=== PATIENT | male | born 1960 | race Caucasian/White ===

== ENCOUNTER 2017-10-05 06:01 | Inpatient (IN) | payer BC ==
[2017-09-29 16:46] VITALS: BMI 35.9
[2017-10-05] MEDS ORDERED: oxyCODONE HCL 10 MG SUSTAINED ACTING TABLET PO ONE (07:04)
[2017-10-05] MEDS ORDERED: TRANEXAMIC ACID 1000 MG/10 ML VIAL IVPUSH ONE (07:04)
[2017-10-05] MEDS ORDERED: ROPIVICAINE 0.2%/MORPH PF/KETOROLAC - 51ML DISP.SYRINGE IA ONE (07:04)
[2017-10-05] MEDS ORDERED: CELECOXIB 200 MG CAPSULE PO ONE (07:04)
[2017-10-05] MEDS ORDERED: BUPIVACAINE HCL/PF (5 MG/ML) 30 ML VIAL IJ ONE (07:25)
[2017-10-05] MEDS ORDERED: EPINEPHrine/PF 1 MG/1 ML (1:1,000) AMPULE ONE (07:25)
[2017-10-05] MEDS ORDERED: MIDAZOLAM HCL 2 MG/2 ML SINGLE DOSE VIAL ONE (07:25)
[2017-10-05] MEDS ORDERED: DEXAMETHASONE SOD PHOSPHATE/PF 10 MG/ML SDV ONE (07:25)
[2017-10-05] MEDS ORDERED: VANCOMYCIN 1,000 MG VIAL (RESTRICTED TO ID ONLY) ONE ×2 (07:29→09:12)
--- NOTE | 2017-10-05 07:35 | HP ---
History & Physical Update - History History: No Change - Physical Physical: No Change - Assessment Assessment: No Change - Plan Plan: No Change
[2017-10-05] MEDS ORDERED: ePHEDrine SULFATE 50 MG/1 ML AMPULE ONE ×2 (08:20→09:26)
[2017-10-05] MEDS ORDERED: FLUMAZENIL 0.5 MG/5 ML VIAL ONE (08:27)
[2017-10-05] MEDS ORDERED: PROPOFOL 20 ML ONE (08:30)
[2017-10-05] MEDS ORDERED: CEFAZOLIN 2 GM in DEXTROSE 5%-WATER - 50 ML IVPB ONE (08:30)
[2017-10-05] MEDS ORDERED: VANCOMYCIN 1,500 MG in DEXTROSE 5%-WATER - 250 ML IVPB ONE (08:30)
[2017-10-05] MEDS ORDERED: SUCCINYLCHOLINE CHLORIDE 200 MG/10 ML VIAL ONE (08:32)
[2017-10-05] MEDS ORDERED: ROCURONIUM BROMIDE 50 MG/5 ML VIAL ONE (08:41)
[2017-10-05] MEDS ORDERED: fentaNYL CITRATE 250 MCG/5 ML VIAL ONE (08:44)
[2017-10-05] MEDS ORDERED: DEXAMETHASONE SOD PHOSPHATE 4 MG/1 ML VIAL ONE (09:12)
[2017-10-05] MEDS ORDERED: ONDANSETRON 4 MG/2 ML VIAL ONE ×2 (09:12→13:40)
[2017-10-05] MEDS ORDERED: ceFAZolin SODIUM 1 GM VIAL ONE ×2 (09:12→10:48)
[2017-10-05] MEDS ORDERED: DESFLURANE GAS 240 ML BOTTLE IH ONE (09:12)
[2017-10-05] MEDS ORDERED: PHENYLEPHRINE HCL 10 MG/1 ML SINGLE DOSE VIAL ONE (09:12)
[2017-10-05] MEDS ORDERED: GLYCOPYRROLATE 0.2 MG/1 ML VIAL ONE (11:55)
[2017-10-05] MEDS ORDERED: NEOSTIGMINE METHYLSULFATE 0.5 MG/ML - 10 ML MDV ONE (11:55)
[2017-10-05] MEDS ORDERED: BENZOIN/ALOE VERA/STORAX/TOLU 58 ML BOTTLE ONE (12:05)
[2017-10-05] MEDS ORDERED: MAG HYDROX/AL HYDROX/SIMETH 30 ML UNIT-DOSE CUP PO PRN (12:41)
[2017-10-05] MEDS ORDERED: MAGNESIUM HYDROX 2400MG/30ML ORAL SUSPENSION 30 ML CUP PO PRN (12:41)
[2017-10-05] MEDS ORDERED: ONDANSETRON 4 MG/2 ML VIAL IVPUSH PRN ×2 (12:41→13:07)
[2017-10-05] MEDS ORDERED: LACTATED RINGERS SOLUTION 1,000 ML IV SCH ×2 (12:45→13:15)
--- NOTE | 2017-10-05 12:48 | OP ---
Operative Note - Note: Operative Date: 10/05/17 Pre-Operative Diagnosis: Left hip DJD Operation: Left total hip replacement Implants: Christopher. Cup - Trident 48mm. Poly - 32mm, neutral. Femur - Accolade II, #5, High Offset, 127 degrees NSA. Head - 32mm, Biolox/Ceramic, Standard Post-Operative Diagnosis: Same as Pre-op Surgeon: Carlitos Vergara Pipe Inspector: Faby Mccracken Anesthesiologist/PROJECT INTERN: Oniel Charles Anesthesia: General, Spinal Specimens Removed: Left femoral head Estimated Blood Loss (mls): 200 Fluid Volume Replaced (mls): 1,800 Operative Report Dictated: Yes
[2017-10-05] MEDS ORDERED: oxyCODONE HCL 5 MG TABLET PO PRN (13:07)
[2017-10-05] MEDS ORDERED: PROMETHAZINE HCL 25 MG/1 ML VIAL IVPUSH PRN (13:07)
--- NOTE | 2017-10-05 13:15 | PN ---
Progress Note (short form) - Note Progress Note: 57M s/p L LUTHER via Direct Superior approach POD #0. -Pain control: No NSAID's. -DVT PPx: Mechanical (VIKTORIYA's & SCD's) and Chemical (ASA EC 81mg PO BID x 6 weeks) . -Incentive spirometry. -PT/OT/Rehab, OOB. -WBAT LLE. -No hip precautions necessary. -Wound care: Maintain Aquacel dressing until first post-op office visit. -Home nursing services. -Home PT: walking only; No ROM or L hip strengthening. -f/u [facility] office 10/13/2016; call for appointment: [phone]. Carlitos Vergara MD (Orthopaedic Surgery)
[2017-10-05] MEDS ORDERED: ACETAMINOPHEN 325 MG TABLET (FP) ONE (13:24)
[2017-10-05] MEDS: ACETAMINOPHEN 325 MG TABLET (FP) PO SCH ×3 (13:29→19:47)
--- NOTE | 2017-10-05 13:45 | SURG ---
Surgery Truck Bench Mechanic Note Truck Bench Mechanic: Faby Mccracken PA-C Date of Service: 10/05/17 Diagnosis: Left hip DJD Procedure: Left total hip replacement I was present for the entirety of the operative procedure. For further detail, please refer to operative report. Visit type - Case Type Case Type: Scheduled Admission - New patient This patient is new to me today: Yes Date on this admission: 10/05/17
[2017-10-05] MEDS: oxyCODONE HCL 5 MG TABLET PO PRN ×3 (15:43→23:56)
--- NOTE | 2017-10-05 15:43 | CONSULT ---
Consultation: REQUESTING PROVIDER: CONSULT REQUEST: We have been asked to medically evaluate this patient for ( specify). HISTORY OF PRESENT ILLNESS: REVIEW OF SYSTEMS: CONSTITUTIONAL: Absent: fever, chills, diaphoresis, generalized weakness, malaise, loss of appetite, weight change HEENT: Absent: rhinorrhea, nasal congestion, throat pain, throat swelling, difficulty swallowing, mouth swelling, ear pain, eye pain, visual changes CARDIOVASCULAR: Absent: chest pain, syncope, palpitations, irregular heart rate, lightheadedness , peripheral edema RESPIRATORY: Absent: cough, shortness of breath, dyspnea with exertion, orthopnea, wheezing, stridor, hemoptysis GASTROINTESTINAL: Absent: abdominal pain, abdominal distension, nausea, vomiting, diarrhea, constipation, melena, hematochezia GENITOURINARY: Absent: dysuria, frequency, urgency, hesitancy, hematuria, flank pain, genital pain MUSCULOSKELETAL: Absent: myalgia, arthralgia, joint swelling, back pain, neck pain SKIN: Absent: rash, itching, pallor HEMATOLOGIC/IMMUNOLOGIC: Absent: easy bleeding, easy bruising, lymphadenopathy, frequent infections ENDOCRINE: Absent: unexplained weight gain, unexplained weight loss, heat intolerance, cold intolerance NEUROLOGIC: Absent: headache, focal weakness or paresthesias, dizziness, unsteady gait, seizure, mental status changes, bladder or bowel incontinence PSYCHIATRIC: Absent: anxiety, depression, suicidal or homicidal ideation, hallucinations. PHYSICAL EXAMINATION Vital Signs - 24 hr 10/05/17 10/05/17 10/05/17 06:28 13:01 13:05 Temperature 98.5 F 97.9 F Pulse Rate 83 97 H 95 H Respiratory 17 16 10 L Rate Blood Pressure 159/107 134/83 132/77 O2 Sat by Pulse 98 99 Oximetry (%) 10/05/17 10/05/17 10/05/17 13:10 13:15 13:30 Temperature Pulse Rate 87 94 H 88 Respiratory 11 L 17 17 Rate Blood Pressure 140/86 140/86 143/86 O2 Sat by Pulse 99 99 98 Oximetry (%) 10/05/17 10/05/17 13:45 13:55 Temperature 97.5 F L Pulse Rate 90 88 Respiratory 18 18 Rate Blood Pressure 158/86 144/90 O2 Sat by Pulse 99 99 Oximetry (%) GENERAL: Awake, alert, and fully oriented, in no acute distress. HEAD: Normal with no signs of trauma. EYES: Pupils equal, round and reactive to light, extraocular movements intact, sclera anicteric, conjunctiva clear. No lid lag. EARS, NOSE, THROAT: Ears normal, nares patent, oropharynx clear without exudates. Moist mucous membranes. NECK: Normal range of motion, supple without lymphadenopathy, JVD, or masses. LUNGS: Breath sounds equal, clear to auscultation bilaterally. No wheezes, and no crackles. No accessory muscle use. HEART: Regular rate and rhythm, normal S1 and S2 without murmur, rub or gallop. ABDOMEN: Soft, nontender, not distended, normoactive bowel sounds, no guarding, no rebound, no masses. No hepatomegaly or splenomegaly. MUSCULOSKELETAL: Normal range of motion at all joints. No bony deformities or tenderness. No CVA tenderness. UPPER EXTREMITIES: 2+ pulses, warm, well-perfused. No cyanosis. No clubbing. Cap refill <2 seconds. No peripheral edema. LOWER EXTREMITIES: 2+ pulses, warm, well-perfused. No calf tenderness. No peripheral edema. NEUROLOGICAL: Cranial nerves II-XII intact. Normal speech. Normal gait. PSYCHIATRIC: Cooperative. Good eye contact. Appropriate mood and affect. SKIN: Warm, dry, normal turgor, no rashes or lesions noted. Active Medications Generic Name Dose Route Start Last Admin Trade Name Freq PRN Reason Stop Dose Admin Acetaminophen 650 mg 10/05/17 14:00 10/05/17 14:31 Tylenol - PO 10/08/17 13:59 Not Given Q6H PEDRO PABLO Al Hydroxide/Mg Hydroxide 30 ml 10/05/17 12:41 Mylanta Oral Suspension - PO Q4H PRN DYSPEPSIA Aspirin 81 mg 10/05/17 22:00 Asa - PO BID PEDRO PABLO Fentanyl 50 mcg 10/05/17 13:07 Sublimaze Injection - IVPUSH [id number] PRN PAIN-PACU ORDER X 4 DOSES ONLY Gabapentin 300 mg 10/05/17 22:00 Neurontin - PO BID PEDRO PABLO Cefazolin Sodium/Dextrose 2 gm in 50 mls @ 100 mls/hr 10/05/17 18:00 Ancef 2 Gm Premixed Ivpb - IVPB 10/06/17 02:29 Q8H-IV PEDRO PABLO Lactated Ringer's 1,000 mls @ 125 mls/hr 10/05/17 12:45 10/05/17 14:30 Lactated Ringers Solution IV 10/06/17 06:00 Not Given ASDIR PEDRO PABLO Vancomycin HCl 1,000 mg in 250 mls @ 250 mls/hr 10/05/17 21:00 Vancomycin (Pre-Docked) IVPB 10/05/17 21:59 ONCE ONE Protocol Lactated Ringer's 1,000 mls @ 75 mls/hr 10/05/17 13:15 10/05/17 14:31 Lactated Ringers Solution IV Not Given ASDIR PEDRO PABLO Magnesium Hydroxide 30 ml 10/05/17 12:41 Milk Of Magnesia - PO PRN PRN CONSTIPATION Ondansetron HCl 4 mg 10/05/17 12:41 Zofran Injection IVPUSH Q6H PRN NAUSEA Ondansetron HCl 4 mg 10/05/17 13:07 Zofran Injection IVPUSH Q6H PRN NAUSEA AND/OR VOMITING Oxycodone HCl 5 mg 10/05/17 13:07 Roxicodone - PO Q3H PRN PAIN LEVEL 1-5 Oxycodone HCl 10 mg 10/05/17 13:07 Roxicodone - PO Q3H PRN PAIN LEVEL 6-10 Oxycodone HCl 10 mg 10/05/17 22:00 Oxycontin - PO 10/08/17 13:07 BID [facility] Pantoprazole Sodium 40 mg 10/06/17 10:00 Protonix - PO DAILY [facility] Promethazine HCl 12.5 mg 10/05/17 13:07 Phenergan Injection - IVPUSH Q6H PRN NAUSEA-FOR RESCUE AFTER 15 MIN Senna/Docusate Sodium 2 tablet 10/05/17 22:00 Pericolace - PO BID [facility] ASSESSMENT/PLAN: Dispo: We will continue to follow the patient. Thank you for this consultative opportunity.
[2017-10-05] MEDS: CEFAZOLIN 2 GM/D5W 2 GM/50 ML ML IVPB SCH (17:31)
[2017-10-05] MEDS ORDERED: VANCOMYCIN 1 GRAM (PRE-DOCKED) 1,000 MG/250 ML BAG IVPB ONE (21:00)
[2017-10-05] MEDS: oxyCODONE HCL 10 MG SUSTAINED ACTING TABLET PO SCH (21:24)
[2017-10-05] MEDS: SENNOSIDES/DOCUSATE COMBO (SENNA PLUS) TABLET (UD) PO SCH (21:24)
[2017-10-05] MEDS: ASPIRIN 81 MG CHEWABLE TABLETS PO SCH (21:24)
[2017-10-05] MEDS: GABAPENTIN 300 MG CAPSULE (FP) PO SCH (21:25)
[2017-10-06] MEDS: ACETAMINOPHEN 325 MG TABLET (FP) PO SCH ×2 (01:28→09:33)
[2017-10-06] MEDS: CEFAZOLIN 2 GM/D5W 2 GM/50 ML ML IVPB SCH (01:28)
[2017-10-06] MEDS: oxyCODONE HCL 5 MG TABLET PO PRN (05:31)
[2017-10-06 05:59] VITALS: BP 148/80; PULSE 77; TEMP 98.3
--- NOTE | 2017-10-06 07:40 | DS ---
Physical Exam: SUBJECTIVE: Patient seen and examined. Sitting in chair at bedside. States he has minimal incisional tenderness. Adequate pain control via prn PO meds. He has been oob and ambulating with walker. Voiding spontaneously. Denies n/v/f/c, CP, SOB, numbness or weakness. OBJECTIVE: Last Vital Signs Temp Pulse Resp BP Pulse Ox 98.3 F 77 18 148/80 98 10/06/17 05:57 10/06/17 05:57 10/06/17 05:57 10/06/17 05:57 10/06/17 05:57 PE GENERAL: awake, alert, and fully oriented, nad HEAD: nc. at. NECK: Trachea midline, full range of motion, supple. LUNGS: cta bilat anteriorly. HEART: rrr ABD: Soft. nt. nd LE: RLE unremarkable. LLE: dressing c/d/i. No hematoma. 2+ pulses, warm, well- perfused, no edema. NEURO: CN II-XII grossly intact. Normal speech, gait not observed. PSYCH: Normal mood, normal affect. HOSPITAL COURSE: Date of Admission:10/05/17 Date of Discharge: 10/06/17 The patient was admitted to the Med-Surg Unit after an elective repair of their left hip DJD. Now, s/p left total hip replacement. An intra-op xray was obtained and confirmed hardware placement in good position, no fractures or dislocations. Since surgery, patient ambulated the hallways with walker assistance. Narcotic and non-narcotic pain management control was achieved with an oral and IV approach. Michelle-operative IV ABX were administered. DVT prophylaxis was achieved with SCDs and early ambulation. The patient ambulated with Physical Therapy and no services were recommended upon discharge. [place] [employer] OPERATOR checked with prior to escribe of narcotic pain management. The discharge instructions and an oral pain management plan were reviewed with the patient. All questions answered. Above plan discussed with Dr. Vergara and agreed. Minutes to complete discharge: 20 Visit type - Case Type Case Type: Scheduled Admission - New patient This patient is new to me today: Yes Date on this admission: 10/06/17
--- NOTE | 2017-10-06 08:06 | CONSULT ---
Consult Consult Specialty:: orthopedics Referred by:: guerrero Reason for Consultation:: medicine - History of Present Illness Chief Complaint: post op History of Present Illness: This is a 57 year old male with pmhx of GERD. He underwent a L hip LUTHER on 10/[address] Vergara. He has no active medical problems or complaints at this time. He is tolerating pain level well following surgery and is eager to move on with physical therapy. We have been asked to eval as medicine. - History Source History Provided By: Patient Limitations to Obtaining History: No Limitations - Past Medical History Gastrointestinal: Yes: GERD - Past Surgical History Additional Surgical History: R hip surgery (14 years old) - Alcohol/Substance Use Hx Alcohol Use: Yes (RARE) History of Substance Use: reports: None - Smoking History Smoking history: Never smoked Have you smoked in the past 12 months: No - Social History Usual Living Arrangement: With Spouse Occupation: [employer] Medications - Allergies Allergies/Adverse Reactions: Allergies Allergy/AdvReac Type Severity Reaction Status Date / Time No Known Allergies Allergy Verified 09/29/17 16:37 - Home Medications Home Medications: Ambulatory Orders Omeprazole 20 mg PO PRN 09/29/17 Oxycodone HCl [Roxicodone -] 5 mg PO Q6H PRN #30 tablet MDD 4 10/06/17 Family Disease History - Family Disease History Family Disease History: Diabetes: Father, Mother, Heart Disease: Father, Mother Review of Systems - Review of Systems Constitutional: reports: No Symptoms Eyes: reports: No Symptoms HENT: reports: No Symptoms Neck: reports: No Symptoms Cardiovascular: reports: No Symptoms Respiratory: reports: No Symptoms Gastrointestinal: reports: No Symptoms Genitourinary: reports: No Symptoms Musculoskeletal: reports: No Symptoms Integumentary: reports: No Symptoms Neurological: reports: No Symptoms Endocrine: reports: No Symptoms Physical Exam Vital Signs: Vital Signs Temperature 98.3 F 10/06/17 05:57 Pulse Rate 77 10/06/17 05:57 Respiratory Rate 18 10/06/17 05:57 Blood Pressure 148/80 10/06/17 05:57 O2 Sat by Pulse Oximetry (%) 98 10/06/17 05:57 Constitutional: Yes: No Distress Eyes: Yes: Conjunctiva Clear HENT: Yes: Atraumatic Cardiovascular: Yes: Regular Rate and Rhythm, S1, S2 Respiratory: Yes: Regular, CTA Bilaterally Gastrointestinal: Yes: Normal Bowel Sounds, Soft Renal/: Yes: WNL Musculoskeletal: Yes: WNL Extremities: Yes: WNL Edema: No Peripheral Pulses WNL: Yes Wound/Incision: Yes: Clean/Dry, Dressing Dry and Intact (L hip) Neurological: Yes: Alert, Oriented, Cran Nerves II-XII Intact Psychiatric: Yes: Alert, Oriented Imaging - Results X-ray: Report Reviewed (s/p L hip replacment in allingment) Problem List - Problems (1) GERD (gastroesophageal reflux disease) Code(s): K21.9 - GASTRO-ESOPHAGEAL REFLUX DISEASE WITHOUT ESOPHAGITIS (2) Hip replacement planned Code(s): PHK8505 - Assessment/Plan Assessment: 57 year old male with GERD post op day 2 L hip replacement Plan: 1. L hip replacement - Post op care and management per Ortho - No nsaids for pain control - DVT ppx SCDS only with ASA 81mg BID x 6 weeks - Pt already takes ppi for GERD, would continue regularly daniela while on ASA BID 2. GERD - Continue omeprazole 3. Hyponatremia - Mild - No signs of dizziness, seizure, blurry vision - Increase salt intake today Thank you for this consultative opportunity. CBCD WBC 10.1 K/mm3 (4.0-10.8) 10/06/17 07:40 RBC 4.47 M/mm3 (4.00-5.60) 10/06/17 07:40 Hgb 13.4 GM/dl (11.7-16.9) 10/06/17 07:40 Hct 38.9 % (35.4-49) 10/06/17 07:40 MCV 87.2 fl (80-96) 10/06/17 07:40 MCHC 34.5 g/dl (32.0-35.9) 10/06/17 07:40 RDW 12.9 % (11.9-15.9) 10/06/17 07:40 Plt Count 204 K/MM3 (134-434) 10/06/17 07:40 MPV 8.6 fl (7.5-11.1) 10/06/17 07:40 CMP Sodium 132 mmol/L (136-145) L 10/06/17 07:40 Potassium 4.0 mmol/L (3.5-5.1) 10/06/17 07:40 Chloride 100 mmol/L (98-107) 10/06/17 07:40 Carbon Dioxide 23 mmol/L (22-28) 10/06/17 07:40 Anion Gap 9 (8-16) 10/06/17 07:40 BUN 21 mg/dl (7-18) H 10/06/17 07:40 Creatinine 1.3 mg/dl (0.6-1.3) 10/06/17 07:40 Calcium 8.5 mg/dl (8.4-10.2) 10/06/17 07:40 Visit type - Emergency Visit Emergency Visit: Yes ED Registration Date: 10/05/17 Care time: The patient presented to the Emergency Department on the above date and was hospitalized for further evaluation of their emergent condition. - New Patient This patient is new to me today: Yes Date on this admission: 10/06/17 - Critical Care Critical Care patient: No
[2017-10-06 08:38] LABS: ANION GAP 9 (8-16); BLOOD UREA NITROGEN 21 mg/dl (7-18); CALCIUM 8.5 mg/dl (8.4-10.2); CHLORIDE 100 mmol/L (98-107); CO2 23 mmol/L (22-28); CREATININE 1.3 mg/dl (0.6-1.3); GLUCOSE,RANDOM 121 mg/dl (74-106); HEMATOCRIT 38.9 % (35.4-49); HEMOGLOBIN 13.4 GM/dl (11.7-16.9); MAGNESIUM 1.9 mg/dL (1.8-2.4); MCH 30.1 pg (25.7-33.7); MCHC 34.5 g/dl (32.0-35.9); MEAN CELL VOLUME 87.2 fl (80-96); MEAN PLT VOLUME 8.6 fl (7.5-11.1); PLATELET COUNT 204 K/MM3 (134-434); RBC 4.47 M/mm3 (4.00-5.60); RDW 12.9 % (11.9-15.9); SODIUM 132 mmol/L (136-145); WHITE BLOOD COUNT 10.1 K/mm3 (4.0-10.8)
[2017-10-06] MEDS: ASPIRIN 81 MG CHEWABLE TABLETS PO SCH (09:32)
[2017-10-06] MEDS: SENNOSIDES/DOCUSATE COMBO (SENNA PLUS) TABLET (UD) PO SCH (09:33)
[2017-10-06] MEDS: GABAPENTIN 300 MG CAPSULE (FP) PO SCH (09:33)
[2017-10-06] MEDS: oxyCODONE HCL 10 MG SUSTAINED ACTING TABLET PO SCH (09:34)
[2017-10-06] MEDS ORDERED: PANTOPRAZOLE 40 MG TABLET (FP) PO SCH (10:00)
--- NOTE | 2017-10-06 14:16 | PN ---
Progress Note, Physician Chief Complaint: s/p left total hip replacement History of Present Illness: post op day one, patient received peripheral nerve block for post op pain, spinal anesthesia for anesthetic - Current Medication List Current Medications: Active Medications Acetaminophen (Tylenol -) 650 mg PO Q6H [facility] Stop: 10/08/17 13:59 Last Admin: 10/06/17 09:33 Dose: 650 mg Al Hydroxide/Mg Hydroxide (Mylanta Oral Suspension -) 30 ml PO Q4H PRN PRN Reason: DYSPEPSIA Aspirin (Asa -) 81 mg PO BID [facility] Last Admin: 10/06/17 09:32 Dose: 81 mg Fentanyl (Sublimaze Injection -) 50 mcg IVPUSH [id number] PRN PRN Reason: PAIN-PACU ORDER X 4 DOSES ONLY Gabapentin (Neurontin -) 300 mg PO BID [facility] Last Admin: 10/06/17 09:33 Dose: 300 mg Lactated Ringer's (Lactated Ringers Solution) 1,000 mls @ 75 mls/hr IV ASDIR [facility] Last Admin: 10/05/17 14:31 Dose: Not Given Magnesium Hydroxide (Milk Of Magnesia -) 30 ml PO PRN PRN PRN Reason: CONSTIPATION Ondansetron HCl (Zofran Injection) 4 mg IVPUSH Q6H PRN PRN Reason: NAUSEA Ondansetron HCl (Zofran Injection) 4 mg IVPUSH Q6H PRN PRN Reason: NAUSEA AND/OR VOMITING Oxycodone HCl (Roxicodone -) 5 mg PO Q3H PRN PRN Reason: PAIN LEVEL 1-5 Oxycodone HCl (Roxicodone -) 10 mg PO Q3H PRN PRN Reason: PAIN LEVEL 6-10 Last Admin: 10/06/17 05:31 Dose: 10 mg Oxycodone HCl (Oxycontin -) 10 mg PO BID [facility] Stop: 10/08/17 13:07 Last Admin: 10/06/17 09:34 Dose: 10 mg Pantoprazole Sodium (Protonix -) 40 mg PO DAILY [facility] Last Admin: 10/06/17 09:33 Dose: 40 mg Promethazine HCl (Phenergan Injection -) 12.5 mg IVPUSH Q6H PRN PRN Reason: NAUSEA-FOR RESCUE AFTER 15 MIN Senna/Docusate Sodium (Pericolace -) 2 tablet PO BID [facility] Last Admin: 10/06/17 09:33 Dose: 2 tablet - Objective Vital Signs: Vital Signs Temperature 98.3 F 10/06/17 05:57 Pulse Rate 77 10/06/17 05:57 Respiratory Rate 18 10/06/17 05:57 Blood Pressure 148/80 10/06/17 05:57 O2 Sat by Pulse Oximetry (%) 98 10/06/17 05:57 Constitutional: Yes: Well Nourished Cardiovascular: Yes: WNL Respiratory: Yes: WNL Gastrointestinal: Yes: WNL Neurological: Yes: WNL Labs: CBC, BMP 10/06/17 07:40 10/06/17 07:40 Assessment/Plan no adverse effect of anesthetic, pain controlled, slight nausea last night but controlled with antiemetic, no further intervention from the dept of anesthesia required.
--- NOTE | 2017-10-07 09:18 | OP ---
DATE OF OPERATION: 10/05/2017 SURGEON: Carlitos Vergara MD CYTOTECHNOLOGIST/CYTOLOGY SUPERVISOR: Faby Mccracken PA-C PREOPERATIVE DIAGNOSIS: Left hip osteoarthritis. POSTOPERATIVE DIAGNOSIS: Left hip osteoarthritis. SURGICAL PROCEDURE: Left total hip replacement via direct superior approach. ANESTHESIA: Paravertebral block, spinal, general. POSITION: Right lateral decubitus. INCISION: Direct superior. ESTIMATED BLOOD LOSS: 200 mL INTRAVENOUS FLUIDS: 1.8 L crystalloid. SPECIMENS: Left femoral head. DRAINS: None. COMPLICATIONS: None. URINE OUTPUT: See nursing/anesthesia record. BACTERIOLOGY: None. TRANSFUSIONS: None. CLOSURE: No. 1 and 2-0 Vicryl and 3-0 Biosyn. INDICATIONS: The patient is a 57-years young male who was indicated for left total hip replacement in order to improve mobility, to facilitate mobilization, and to prevent the complications associated with sedentary lifestyle. The patient was identified in the holding area by his armband. A long discussion was held with the patient in the presence of his regarding the risks, benefits, and alternatives of the above named procedure. Risks included, but are not limited to: Pain, bleeding, infection, damage to surrounding structures (including nerves, blood vessels, skin, ligaments, tendons, and bone), wound complications, failure of hardware/implants/reduction, need for further surgery, blood clots, myocardial infarction, pulmonary embolism, anesthesia complications, compartment syndrome, limb loss, limb loss of function, and . Benefits as mentioned above. Alternatives include no surgery. All questions were answered. The patient understood and agreed to the procedure. Informed consent was obtained, witnessed, and verified. The patient's correct operative limb - that is the left lower extremity - was marked , and the patient was taken to the operating room after being seen by the anesthesia and nursing staff. PROCEDURE: The patient was brought into the operating room and placed on the OR table where he was secured with a safety strap. Consent and the operative site were again verified with the patient and nursing and anesthesia staff. Although a paravertebral block had been performed in the preoperative holding area, spinal anesthetic was then administered. IV antibiotics were then administered as well including 2 g of IV Ancef and 1 g of IV vancomycin. It was then determined that the spinal anesthetic was deemed to be a high epidural and was causing some proximal symptomatology. At that point in time, the anesthesia team elected to perform an intubation and administer general endotracheal tube anesthesia so as to secure his airway. A timeout was then done led by me, the attending surgeon. A preoperative orthopedic examination revealed a 0.5-cm leg length discrepancy with the left lower extremity being shorter than the right, as well as a markedly reduced left hip range of motion. The patient was positioned in the right lateral decubitus position with all bony prominences well padded. Next, a Margarito-type frame was used to secure the patient's pelvis while he was positioned in the right lateral decubitus position. Two anterior padded bolsters were placed on the right and left anterior-superior iliac spine, and a posterior padded bolster was then positioned over the lumbosacral junction. An axillary roll was then placed. The operative site was then prepped and draped in standard sterile fashion. A timeout was again done, and the case began. A standard direct superior approach was made to expose the left hip. The incision was made from the posterior-superior corner of the left greater trochanter moving proximally in line with the anticipated fibers of the gluteus kimberly muscle. Sharp dissection was carried through the skin down to the level of subcutaneous tissue. Electrocautery was used to achieve hemostasis while dissecting through the subcutaneous tissues, through the subcutaneous fat, down to the level of the gluteus kimberly muscle fascia. The gluteus kimberly muscle fascia was then incised, revealing the underlying gluteus kimberly muscle belly. The fibers of the gluteus kimberly muscle were found to be in line with our incision, validating the correct trajectory with which we anticipated the approach. Next, a Alarcon elevator was used to split the muscles of gluteus kimberly in line with one another so as to not disrupt or transect any of the muscle fibers. The underlying pericapsular fat was identified, and the gluteus kimberly muscle was retracted both proximally and distally using curved handlebar retractors. The pericapsular fat was then dissected off the posterior-superior corner of the greater trochanter, exposing the underlying short external rotators of the hip. This dissection was also carried off the inferior border of the gluteus medius muscle. Next, another curved handlebar retractor was utilized to elevate the gluteus medius muscle. The piriformis muscle was identified and transected off its insertion within the piriformis fossa. This muscle was then tagged with No. 1 Ethibond suture and tied to the apex of the wound, ultimately acting as a soft tissue sling so as to preserve the safety of the sciatic nerve. Next, a Alarcon elevator was used to sweep the short external rotators off of the hip capsule distally, and they were reflected using a curved handlebar retractor. With the capsule in plain sight, a crescentic capsulotomy was performed using electrocautery. Copious synovial joint fluid was aspirated. Next, curved retractors were used within the capsule to expose the femoral head. A gentle dislocation of the hip was performed. Next, a standard femoral neck cut was made utilizing the principles of Charnley. At this point in time, a series of retractors was used to expose the acetabulum. The labrum was excised without compromising the integrity of the hip capsule. The pulvinar was also excised using electrocautery to maintain hemostasis. With plain view of the cotyloid fossa and the remaining acetabulum, anterior osteophytes were noted on the acetabular rim. These were cut using 1/4-inch curved osteotome with gentle mallet strikes, and then removed using a rongeur. Next, standard reamers were used to prepare the acetabular bone bed. We began with a 41-mm reamer and increased with intervals of 2 mm, ultimately arriving at a final reaming size of 47 mm. A 48-mm Christopher Trident cup was then impacted into satisfactory position. A 32-mm neutral polyethylene liner was then impacted into the cup. The retractors were then removed, and attention was turned to the proximal femur. Retractors were then placed to maximize exposure of the proximal femur. A canal finder was used on a T-handle to enter the femoral canal. This was preceded with the use of a boxing and pressing supervisor osteotome to lateralize our exposure into the proximal femur. Next, broaches were used starting with number 0 and increasing one at a time up to number 5 to prepare the femoral bone bed for final stem implantation. The tibia was used as a goniometer so as to dial in maximum offset with minimum anteversion of 5-10 degrees in planning placement of the femoral stem. Next, a Many Accolade II number 5 , high-offset, 127-degree neck shaft angle stem was selected for trial. The modular components were assembled with a 32-mm standard head. The hip was then reduced without complication, taken through a full range of motion, demonstrating stability throughout the range of motion, passing the stability test in positions of compromise (IE flexion, adduction, and internal rotation). An AP radiograph was taken intraoperatively to determine adequate orientation of the components as well as to confirm satisfactory leg length. With satisfaction achieved, the trial components were explanted. At this point in time, another gram of IV Ancef was administered in time for seating of the femoral component. Next, a final true implant was selected for seating. Again, this was a Many Accolade II number 5, high- offset, 127-degree neck shaft angle stem. A 32-mm Biolox ceramic head, standard length , was then impacted onto the trunnion of the stem, and the hip was once again reduced. The hip was taken through a full range of motion and deemed once again to be stable. The wound was copiously irrigated and all tissues were manually debrided with finger debridement throughout the case. Hemostasis was assured now and previously throughout the case. A primary capsular closure was performed using No. 1 Vicryl sutures. Next, the capsule and aaliyah-incisional soft tissues were infiltrated with an 18-gauge needle, and a cocktail of analgesic medications that were ordered preoperatively. After this, the piriformis tendon was released from its suture, whereby it had been tied to the apex of the wound. The piriformis was clearly not able to reach the piriformis fossa, and instead of performing a primary repair of this structure, I decided to leave it in its retracted position. Next, 0.5 g of lyophilized vancomycin powder was introduced into the deep wound, and retractors were removed so as to allow the gluteus kimberly muscle belly to re-appose and fall back together. The gluteus kimberly muscle fascia was closed with No. 1 Vicryl sutures in simple interrupted suture fashion. Next, all remaining soft tissues were closed using No. 1 Vicryl sutures, and the skin was closed using 3- 0 Biosyn. A combination of benzoin and Steri-Strips were used to dress the wound, followed by an Aquacel dressing. The patient tolerated the procedure well. He was then rolled onto his back and transferred to the hospital bed whereupon final AP and left hip radiographs demonstrated excellent overall seating of components with a well-reduced hip. Limb length assessment on the bed determined equal leg lengths. The patient was then extubated successfully without incident or complication and transferred to the recovery room, having tolerated the procedure very well. MD NAUN Montesinos/[id number] MTDD
--- NOTE | 2017-10-12 16:30 | PATH ---
Surgical Pathology Report Patient Name: CRISTAL BRUNNER JR Med. Rec. #: [id number] /Age/Gender: 1960 (Age: 57) / M Account: [id number] Location: [facility] MED-SURG Taken: 10/05/2017 Received: 10/05/2017 Reported: 10/12/2017 Physicians: Carlitos Vergara M.D. Specimen(s) Received LEFT FEMORAL HEAD Clinical History Left hip osteoarthritis Final Diagnosis FEMORAL HEAD, LEFT, TOTAL HIP REPLACEMENT: DEGENERATIVE JOINT DISEASE. Electronically Signed Effie James M.D. Gross Description Received in formalin, labeled "left femoral head," is a 4.3 x 4.3 x 3.8 cm. femoral head with a 1.0 cm in length portion of femoral neck attached. The margin of resection is smooth. There is a 3.2 cm in greatest dimension area of eburnation present. The remaining articular surface is somers-yellow and diffusely granular. The underlying trabecular bone is yellow and hard. A product support sales representative section is submitted in one cassette, following decalcification. 10/06/201710/06/2017
== END 2017-10-06 16:13 | disposition home or self-care (01) | DRG 470 ==
LOC: FM/S 06:01
PROVIDERS: ADMIT Orthopaedic Surgery Adult Reconstructive Orthopaedic Surgery; ATTEND Orthopaedic Surgery Adult Reconstructive Orthopaedic Surgery
PROC: 0SRB0JZ Replacement of Left Hip Joint with Synthetic Substitute, Open Approach (ICD-10-PCS; principal; 2017-10-05 09:30)
DX: M16.12 Unilateral primary osteoarthritis, left hip (principal); E87.1 Hypo-osmolality and hyponatremia; K21.9 Gastro-esophageal reflux disease without esophagitis
CPT/HCPCS: 36415; 73502-TC-LT-FY; 80048; 83735; 85027; 88304-TC; 88311-TC; 94010; 94760; 97116-GP; 97162-GP